=== PATIENT | female | born 1975 | race Caucasian/White ===

== ENCOUNTER 2020-03-16 09:12 | Day surgery (SDC) | payer OTHER ==
[2020-03-06 14:59] LABS: BASOPHILS # (AUTO) 0.1 X10'3 (0-0.2); BASOPHILS % (AUTO) 0.8 % (0-1); EOSINOPHILS % (AUTO) 0.5 % (0-6); LYMPHOCYTES % (AUTO) 37.8 % (21-51); MEAN CORPUSCULAR HEMOGLOBIN 31.9 PG (27.0-31.0); MEAN CORPUSCULAR HGB CONC 33.9 g/dL (33.0-36.5); MEAN PLATELET VOLUME 7.9 FL (7.4-10.4); MONOCYTES # (AUTO) 0.6 X10'3 (0-0.9); MONOCYTES % (AUTO) 7.2 % (2-12); NEUTROPHILS # (AUTO) 4.3 X10'3 (1.8-7.7); NEUTROPHILS % (AUTO) 53.7 % (42-75); PRE OP HEMATOCRIT 44.8 % (35.0-45.0); PRE OP HEMOGLOBIN 15.2 g/dL (12.0-16.0); PRE OP PLATELET COUNT 286 X10'3 (140-440); RED BLOOD COUNT 4.76 X10'6 (4.20-5.60); RED CELL DISTRIBUTION WIDTH 13.1 % (11.5-14.5)
[2020-03-06 15:07] LABS: CLARITY,URINE SLIGHTLY CLOUDY (Clear); GLUCOSE, URINE NEGATIVE (Neg); KETONES,URINE TRACE mg/dl (Neg); LEUKOCYTE ESTERASE ,URINE NEGATIVE (Neg); NITRITES, URINE NEGATIVE (Neg); OCCULT BLOOD,URINE NEGATIVE (Neg); PROTEIN,URINE NEGATIVE (Neg); UROBILINOGEN,URINE 0.2 E.U/dL (0.2-1.0)
[2020-03-06 15:22] LABS: COLOR,URINE STRAW (Yellow); UA COLLECTION TYPE CLN CATCH MIDSTREAM
[2020-03-06 15:23] LABS: BACTERIA,URINE FEW /HPF (Neg); RBC,URINE NONE SEEN /HPF (0-2); SQUAMOUS EPITHELIAL CELL,UR FEW /LPF (FEW); WBC,URINE NONE SEEN /HPF (0-4)
[~2020-03-16] VITALS: Ht 172.7 cm; Wt 63.5 kg
[2020-03-16] VITALS (10 sets, daily range): BP systolic 104–116; BP diastolic 65–79
[~2020-03-16 09:12] MED LIST: ALPR-163 PO; BETA1POW; FEXO-25 PO; HYDR200T84 PO; LISI1TAB32 PO; ZOLP10TA PO; ceFAZolin 2gm in dextrose, iso 50 ML IV ONE; famotidine 20mg tablet PO ONE; ringers solution, lacted 1,000 ML IV SCH
[2020-03-16 10:28] LABS: ALANINE AMINOTRANSFERASE 22 U/L (12-78); ALBUMIN 4.2 G/DL (3.4-5.0); ALBUMIN/GLOBULIN RATIO 1.3 (1.1-1.5); ALKALINE PHOSPHATASE 90 IU/L (46-116); ANION GAP 12 (8-16); ASPARTATE AMINO TRANSFERASE 17 U/L (10-37); BILIRUBIN,TOTAL 1.1 MG/DL (0.1-1.0); BLOOD UREA NITROGEN 13 MG/DL (7-18); BUN/CREATININE RATIO 19.1 (6.6-38.0); CALCIUM 9.2 MG/DL (8.5-10.1); CHLORIDE 103 MMOL/L (99-107); CREATININE 0.68 MG/DL (0.40-0.90); GLUCOSE 107 MG/DL (70-104); POTASSIUM 3.4 MMOL/L (3.5-5.1); SODIUM 138 MMOL/L (135-145); TOTAL CARBON DIOXIDE 23.4 MMOL/L (24-32); TOTAL PROTEIN 7.5 G/DL (6.4-8.2); eGFR > 90 ML/MIN
[2020-03-16] MEDS ORDERED: bacitracin 15gm ointment TP ONE (12:04)
[2020-03-16] MEDS ORDERED: ringers solution, lacted 1,000 ML IV SCH (12:10)
[2020-03-16] MEDS ORDERED: fentaNYL/PF 50MCG/1 ML 2ML syringe IV PRN ×2 (12:10)
[2020-03-16] MEDS ORDERED: hydrALAZINE 20mg/ml inj. IV PRN (12:10)
[2020-03-16] MEDS ORDERED: morphine 4 MG/ML inj SYRINge IV PRN (12:10)
[2020-03-16] MEDS ORDERED: morphine 2 MG/ML inj. syringe IV PRN (12:10)
[2020-03-16] MEDS ORDERED: labetalol 20mg/4ml (5mg/ml) syringe IV PRN (12:10)
[2020-03-16] MEDS ORDERED: ondansetron/PF 4mg/2ml inj IV PRN (12:10)
[2020-03-16] MEDS ORDERED: ondansetron/PF 4mg/2ml inj ONE (12:13)
[2020-03-16] MEDS ORDERED: fentaNYL/PF 50MCG/1 ML 2ML syringe ONE (12:13)
[2020-03-16] MEDS ORDERED: dexamethasone sod phosphate 10mg/ml inj ONE (12:13)
[2020-03-16] MEDS ORDERED: MIDAZolam 5mg/5ml vial ONE (12:13)
[2020-03-16] MEDS ORDERED: LIDOcaine 2% (20mg/ml) 5ml vial ONE (12:13)
[2020-03-16] MEDS ORDERED: sevoflurane 250ml liquid IH ONE (12:13)
[2020-03-16] MEDS ORDERED: propofol inj 20 ML IV ONE (12:13)
[2020-03-16] MEDS ORDERED: ROPIVAcaine 0.5% (5mg/ml) 30ml vial ONE (12:13)
--- NOTE | 2020-03-16 13:12 | NUR ---
RECEIVED FROM OR VIA [facility] ACCOMPANIED BY ANESTHESIOLOGIST DR FITCH, REPORT GIVEN. PT AWAKE AND ALERT AND DENIES PAIN AT THIS TIME. 20 GAUGE PIV R HAND PATENT AND RUNNING LR AT 100 ML/HR. DRESSING L FOOT CDI COMPRISED OF 4X4, WEBRIL AND KEITH WRAP. BRISK CAP REFILL, SKIN PINK AND WARM, CARREON, VSS. L FOOT ELEVATED AND ICE APPLIED, RESTING COMFORTABLY.
--- NOTE | 2020-03-16 14:22 | NUR ---
PT AWAKE AND ALERT AND DENIES PAIN AT THIS TIME. 20 GAUGE PIV R FA DC/D CATH TIP INTACT. DRESSING L HAND CDI COMPRISED OF 4X4, KERLIX AND BIAS WRAP. PPULSES PALPABLE, BRISK CAP REFILL, SKIN PINK AND WARM, CARREON, VSS. TOLERATING FLUIDS, ABLE TO DRESS SELF AND AMBULATE WITHOUT ASSIST. DISCHARGE INSTRUCTIONS GIVEN AND PT VERBALIZED UNDERSTANDING. TRANSPORTED VIA WHEELCHAIR TO IN PRIVATE VEHICLE TO HOME.
== END 2020-03-16 14:22 | disposition home or self-care (01) ==
LOC: PAS 09:12
PROVIDERS: ATTEND Podiatrist Foot & Ankle Surgery
DX: M77.42 Metatarsalgia, left foot (principal); F41.9 Anxiety disorder, unspecified; I10 Essential (primary) hypertension; G89.18 Other acute postprocedural pain; Z79.899 Other long term (current) drug therapy; Z20.828 Contact with and (suspected) exposure to other viral communicable diseases; Z98.890 Other specified postprocedural states; Z87.891 Personal history of nicotine dependence; Z72.89 Other problems related to lifestyle
CPT/HCPCS: 28308; 36415; 64447; 64450; 73620; 76000; 76942; 80053; 81001; 85025; 87635; 93005; A6223; C1713; J2001; J2250; J2405; J2704; J3010; A4215; A4618; A6449; A7000; J1100; J2795; J7120

== ENCOUNTER → 2023-10-02 | Outpatient (CLI) | payer OTHER ==
[~2023-10-02] MED LIST changes: -HYDR200T84 PO; -LISI1TAB32 PO; +LISI1TAB49 PO; -ceFAZolin 2gm in dextrose, iso 50 ML IV ONE; -famotidine 20mg tablet PO ONE; -ringers solution, lacted 1,000 ML IV SCH
== END | disposition home or self-care (01) ==
LOC: RAD 12:38
PROVIDERS: ATTEND Family Medicine
DX: N20.0 Calculus of kidney (principal); K76.9 Liver disease, unspecified; K44.9 Diaphragmatic hernia without obstruction or gangrene; I70.90 Unspecified atherosclerosis; M47.816 Spondylosis without myelopathy or radiculopathy, lumbar region; R10.32 Left lower quadrant pain
CPT/HCPCS: 74176